=== PATIENT | female | born 1945 | race Caucasian/White ===

== ENCOUNTER 2018-03-21 09:09 | Day surgery (SDC) | payer MEDICARE ==
[~2018-03-21 09:09] MED LIST: Acetaminophen TAB* 325 MG PO PRN; Buffered Lidocaine 1% SYRIN* 1 ML/SYRINGE INTRADERM ONE; Cyclopentolate 1% OPTH.SOL* 2 ML BTL ONE; Ketorolac 0.5% OPHTH (NF) 0.5 % 5 ML BTL ONE; Lidocaine 1%* 5 ML VIAL ONE; Neomycin/Polymy/Dex OPHTH.OIN* 3.5 GM ONE; Phenylephrine 2.5% OPTH.SOL* 2 ML BTL ONE; Tetracaine 0.5% OPTH.SOL 4 ML* 1 DROP BTL ONE; Tropicamide 1% OPTH.SOL* BTL ONE; Trypan Blue 0.06% SOL* 0.5 ML BTL ONE
[2018-03-21] MEDS ORDERED: fentaNYL* 50 MCG/ML 2 ML VIAL (100 MCG VIAL) ONE (10:13)
[2018-03-21] MEDS ORDERED: Midazolam* 1 MG/ML 2 ML VIAL (2 MG) ONE (10:13)
[2018-03-21 11:37] VITALS: BP 125/58
[2018-03-21] MEDS ORDERED: Phenylephr/Ketorolac 1%/0.3% OPH DROP BTL ONE (13:22)
--- NOTE | 2018-03-21 20:05 | OP ---
DATE OF OPERATION: 03/21/18 [facility] DATE OF : 41 SURGEON: Chin Brody MD HELIX COIL WINDER: None. ANESTHESIA: Topical with intravenous sedation. PRE-OP DIAGNOSIS: Dense white cataract, right eye. POST-OP DIAGNOSIS: Dense white cataract, right eye. OPERATIVE PROCEDURE: Phacoemulsification and cataract extraction with posterior chamber intraocular lens implant, right eye. COMPLICATIONS: None. BLOOD LOSS: None. DESCRIPTION OF PROCEDURE: The patient was brought to the operating room and received intravenous sedation as well as a drop of tetracaine to her right eye. The patient was prepped and draped in the usual sterile fashion for ophthalmic surgery and attention was directed to the right eye where a speculum was placed. It was noted that her pupil was not well dilated and she had a dense white lens. A paracentesis was created at the 11 o'clock position and 0.1 cc of 1% preservative-free lidocaine was injected into the anterior chamber followed by room air. This was followed by Vision-Blue dye and then by DisCoVisc. The eye was digitally stabilized while a 2.75-mm keratome was used to create a triplanar clear corneal incision at the 9 o'clock position. A continuous curvilinear capsulorrhexis was created with a cystotome and Utrata forceps. BSS on a cannula was used to hydrodissect the lens from the capsule. The phacoemulsification was performed in a thglts-shj-ahfudio technique to create 4 fragments, which were removed. Phaco power had to be increased about 10% to achieve this safely without pushing too hard on the lens capsular complex. Minimal residual cortical material was removed with irrigation and aspiration. Omidria had been placed in the irrigating solution to facilitate the surgery. The eye was inflated with Provisc and the surface of the eye was lubricated. Eye pressure was checked with a tonometer and then ORA was applied to confirm proper lens choice. An AU00T0 21.5 diopter lens was inserted into the capsular bag. Viscoelastic was then removed from the eye using irrigation and aspiration. BSS on the cannula was used to hydrate the corneal stoma and seal the wound. At the end of the case, the pupil was round. The lens was centered and stable. The eye pressure appeared normal and the wound was watertight. Topical Maxitrol ointment was placed on the surface of the eye. The eye was closed, patched and shielded and the patient was sent to recovery room in stable condition with postop instructions and followup appointment given. [id number]/[facility] #: [id number] HERMELINDO
== END 2018-03-21 12:02 | disposition home or self-care (01) ==
LOC: OREAST 09:09
PROVIDERS: ATTEND Ophthalmology
DX: H25.041 Posterior subcapsular polar age-related cataract, right eye (principal); E78.00 Pure hypercholesterolemia, unspecified; I10 Essential (primary) hypertension; E78.5 Hyperlipidemia, unspecified
CPT/HCPCS: A9270-GY; C9447; J2250; J3010; V2632

== ENCOUNTER 2021-12-26 13:18 | Inpatient (IN) ==
[2021-12-26 14:03] LABS: Hematocrit 39 % (35-47); Hemoglobin 12.9 g/dL (12.0-16.0); Mean Corpuscular HGB Conc 33 g/dL (31-36); Mean Corpuscular Hemoglobin 31 pg (27-31); Mean Corpuscular Volume 93 fL (80-97); Platelet Count 250 10^3/uL (150-450); Red Blood Count 4.17 10^6 /uL (3.70-4.87); Red Cell Distribution Width 14 % (10-15); White Blood Count 17.1 10^3/uL (3.5-10.8)
[2021-12-26] MEDS ORDERED: cefTRIAXone 1 gm/50 mL D5W 1 GM/50 ML BAG IV ONE (14:08)
[2021-12-26 14:42] LABS: Albumin/Globulin Ratio 0.7 (1-3); C Reactive Protein 349.09 mg/L (<8.01); Calcium 8.6 mg/dL (8.6-10.3); Globulin 4.6 g/dL (2-4); Potassium 3.8 mmol/L (3.5-5.0); Total Bilirubin 2.1 mg/dL (0.2-1.0); Total Protein 7.6 g/dL (6.4-8.9); eGFR CKD-EPI 48.8 (>60)
[2021-12-26] MEDS ORDERED: Iodixanol (CONTRAST) 320 MG/ML 100 ML SDV IV ONE (14:45)
[2021-12-26 14:51] LABS: ABS Lymphocytes 0.5 10^3/ul (1.0-4.8); ABS Monocytes 0.4 10^3/ul (0-0.8); ABS Neutrophils 16.1 10^3/ul (1.5-7.7); Eosinophil % 0.1 %; Lymphocyte % 3.1 %
[2021-12-26] MEDS ORDERED: NS 0.9% 1000 ml BAG 1,000 ML IV ONE (15:06)
[2021-12-26 15:11] LABS: Venous Bicarbonate HCO3 25.5 mmol/L (24-28)
[2021-12-26 15:35] LABS: High Sensitivity Troponin 1 Hr 30 pg/mL (<15)
[2021-12-26 17:39] LABS: HDL Cholesterol 21.5 mg/dL
[2021-12-26 17:54] LABS: TSH Ultra Thyroid Stim Horm 8.43 mcIU/mL (0.34-5.60)
[2021-12-26] MEDS ORDERED: Azithromycin 500 mg/250 ml NS 500 MG/250 ML BAG IVPB SCH (18:00)
[2021-12-26] MEDS ORDERED: Cyanocobalamin INJ 1,000 MCG/ML VIAL 1 ML VIAL IM SCH (19:00)
[2021-12-26 19:17] LABS: Phosphorus 2.6 mg/dL (2.5-5.0)
[2021-12-26] MEDS: Lactated Ringers 1000 ml BAG 1,000 ML IV SCH (20:08)
[2021-12-26] MEDS: Azithromycin 500 mg/250 ml NS 500 MG/250 ML BAG IVPB SCH (21:07)
[2021-12-27 00:09] LABS: Calcium 7.9 mg/dL (8.6-10.3); Potassium 3.5 mmol/L (3.5-5.0); eGFR CKD-EPI 88.5 (>60)
[2021-12-27 00:32] LABS: Urine Appearance Cloudy; Urine Bilirubin Negative (Negative); Urine Blood 3+ (Negative); Urine Color Yellow; Urine Glucose Negative (Negative); Urine Ketones Trace (Negative); Urine Nitrite Positive (Negative); Urine Protein 2+(100 mg/dL) (Negative); Urine Specific Gravity 1.038 (1.002-1.030); Urine Urobilinogen Positive (Negative)
[2021-12-27 00:35] LABS: Urine Bacteria 1+ (Absent); Urine Red Blood Cell Trace(0-2/hpf) (Absent); Urine Squamous Epithelial Cell Present (Absent); Urine White Blood Cell 2+(11-20/hpf) (Absent)
[2021-12-27 01:04] LABS: Urine Osmo 704 mOsm/kg (150-1150)
[2021-12-27 05:13] LABS: ABS Lymphocytes 0.4 10^3/ul (1.0-4.8); ABS Monocytes 0.4 10^3/ul (0-0.8); ABS Neutrophils 12.1 10^3/ul (1.5-7.7); Eosinophil % 0.1 %; Hematocrit 33 % (35-47); Hemoglobin 11.3 g/dL (12.0-16.0); Lymphocyte % 3.4 %; Mean Corpuscular HGB Conc 34 g/dL (31-36); Mean Corpuscular Hemoglobin 32 pg (27-31); Mean Corpuscular Volume 93 fL (80-97); Mean Platelet Volume 7.6 fL (7.4-10.4); Platelet Count 205 10^3/uL (150-450); Red Cell Distribution Width 13 % (10-15); White Blood Count 12.9 10^3/uL (3.5-10.8)
[2021-12-27 05:48] LABS: Calcium 7.5 mg/dL (8.6-10.3); Phosphorus 2.5 mg/dL (2.5-5.0); Potassium 3.5 mmol/L (3.5-5.0); eGFR CKD-EPI 92.2 (>60)
[2021-12-27 07:30] LABS: Albumin 2.1 g/dL (3.2-5.2); Albumin/Globulin Ratio 0.6 (1-3); Direct Bilirubin 0.5 mg/dL (0.03-0.18); Globulin 3.3 g/dL (2-4); Indirect Bilirubin 0.7 mg/dL (0.3-1.0); Total Bilirubin 1.2 mg/dL (0.2-1.0); Total Protein 5.4 g/dL (6.4-8.9)
[2021-12-27] MEDS: Lactated Ringers 1000 ml BAG 1,000 ML IV SCH ×2 (08:34→23:13)
[2021-12-27] MEDS ORDERED: Potassium Chlor 20 meq TAB.ER PO ONE (08:37)
[2021-12-27] MEDS: Cyanocobalamin INJ 1,000 MCG/ML VIAL 1 ML VIAL IM SCH (09:03)
[2021-12-27] MEDS: Aspirin EC 81 mg TAB.EC (enteric coated) PO SCH (09:03)
[2021-12-27] MEDS: cefTRIAXone 1 gm/50 mL D5W 1 GM/50 ML BAG IV SCH (16:55)
[2021-12-27] MEDS: Azithromycin 500 mg/250 ml NS 500 MG/250 ML BAG IVPB SCH (19:35)
[2021-12-27] MEDS ORDERED: Haloperidol 5 mg/ml SDV IV/IM 5 MG/ML AMP IV SLOW PU ONE (22:08)
[2021-12-27] MEDS ORDERED: Lactated Ringers 1000 ml BAG 500 ML IV ONE (23:10)
[2021-12-28] MEDS: Lactated Ringers 1000 ml BAG 1,000 ML IV SCH (06:00)
[2021-12-28 06:04] LABS: Hematocrit 35 % (35-47); Hemoglobin 11.6 g/dL (12.0-16.0); Mean Corpuscular HGB Conc 33 g/dL (31-36); Mean Corpuscular Hemoglobin 31 pg (27-31); Mean Corpuscular Volume 94 fL (80-97); Mean Platelet Volume 7.5 fL (7.4-10.4); Platelet Count 205 10^3/uL (150-450); Red Cell Distribution Width 14 % (10-15); White Blood Count 10.1 10^3/uL (3.5-10.8)
[2021-12-28 06:20] LABS: ALT 61 U/L (7-52); Albumin 2.1 g/dL (3.2-5.2); Albumin/Globulin Ratio 0.6 (1-3); Alkaline Phosphatase 96 U/L (35-149); Blood Urea Nitrogen 27 mg/dL (6-24); CO2 Carbon Dioxide 25 mmol/L (22-32); Calcium 7.6 mg/dL (8.6-10.3); Chloride 101 mmol/L (101-111); Globulin 3.3 g/dL (2-4); Glucose 89 mg/dL (70-100); Magnesium 1.9 mg/dL (1.9-2.7); Sodium 128 mmol/L (135-145); Total Protein 5.4 g/dL (6.4-8.9); eGFR CKD-EPI 94.6 (>60)
[2021-12-28 06:28] LABS: Anion Gap 2 mmol/L (2-11)
[2021-12-28 07:43] LABS: Potassium Redraw 3.9 mmol/L (3.5-5.0)
[2021-12-28 08:27] LABS: ABS Lymphocytes 0.7 10^3/ul (1.0-4.8); ABS Monocytes 0.8 10^3/ul (0-0.8); ABS Neutrophils 8.6 10^3/ul (1.5-7.7); Eosinophil % 0.1 %; Lymphocyte % 6.9 %
[2021-12-28] MEDS: Aspirin EC 81 mg TAB.EC (enteric coated) PO SCH (11:07)
[2021-12-28] MEDS: Cyanocobalamin INJ 1,000 MCG/ML VIAL 1 ML VIAL IM SCH (14:20)
[2021-12-28] MEDS: Enoxaparin 40 MG/0.4 ML SYR SUBCUT SCH (14:21)
[2021-12-28] MEDS: cefTRIAXone 1 gm/50 mL D5W 1 GM/50 ML BAG IV SCH (15:58)
[2021-12-28] MEDS: Acetaminophen IV 1 GM/100ML 1,000 MG/100 ML BAG IV PRN (18:03)
[2021-12-28] MEDS: Azithromycin 500 mg/250 ml NS 500 MG/250 ML BAG IVPB SCH (19:44)
[2021-12-29 04:47] LABS: Hematocrit 39 % (35-47); Hemoglobin 12.8 g/dL (12.0-16.0); Mean Corpuscular HGB Conc 33 g/dL (31-36); Mean Corpuscular Hemoglobin 32 pg (27-31); Mean Corpuscular Volume 97 fL (80-97); Mean Platelet Volume 7.4 fL (7.4-10.4); Platelet Count 230 10^3/uL (150-450); Red Blood Count 4.05 10^6 /uL (3.70-4.87); Red Cell Distribution Width 14 % (10-15); White Blood Count 8.9 10^3/uL (3.5-10.8)
[2021-12-29 04:58] LABS: Potassium 4.2 mmol/L (3.5-5.0)
[2021-12-29 05:09] LABS: ABS Eosinophils 0.1 10^3/ul (0-0.6); ABS Lymphocytes 0.9 10^3/ul (1.0-4.8); ABS Monocytes 1.2 10^3/ul (0-0.8); ABS Neutrophils 6.7 10^3/ul (1.5-7.7); Calcium 7.6 mg/dL (8.6-10.3); Eosinophil % 0.7 %; Lymphocyte % 10.4 %; Magnesium 1.9 mg/dL (1.9-2.7)
[2021-12-29 05:13] LABS: eGFR CKD-EPI 96.4 (>60)
[2021-12-29] MEDS: Aspirin EC 81 mg TAB.EC (enteric coated) PO SCH (09:01)
[2021-12-29] MEDS: Cyanocobalamin INJ 1,000 MCG/ML VIAL 1 ML VIAL IM SCH (09:02)
[2021-12-29] MEDS: Lidocaine PATCH 5% PATCH TRANSDERM SCH (09:03)
[2021-12-29] MEDS: Enoxaparin 40 MG/0.4 ML SYR SUBCUT SCH (12:57)
[2021-12-29] MEDS: cefTRIAXone 1 gm/50 mL D5W 1 GM/50 ML BAG IV SCH (17:31)
[2021-12-30 07:03] LABS: Hematocrit 35 % (35-47); Hemoglobin 11.8 g/dL (12.0-16.0); Mean Corpuscular HGB Conc 34 g/dL (31-36); Mean Corpuscular Hemoglobin 32 pg (27-31); Mean Corpuscular Volume 93 fL (80-97); Mean Platelet Volume 7.6 fL (7.4-10.4); Platelet Count 277 10^3/uL (150-450); Red Blood Count 3.72 10^6 /uL (3.70-4.87); Red Cell Distribution Width 14 % (10-15); White Blood Count 7.8 10^3/uL (3.5-10.8)
[2021-12-30 07:27] LABS: Calcium 7.7 mg/dL (8.6-10.3); Potassium 3.9 mmol/L (3.5-5.0); eGFR CKD-EPI 95.5 (>60)
[2021-12-30] MEDS: Lidocaine PATCH 5% PATCH TRANSDERM SCH (08:37)
[2021-12-30] MEDS: Aspirin EC 81 mg TAB.EC (enteric coated) PO SCH (08:37)
[2021-12-30] MEDS: Cyanocobalamin INJ 1,000 MCG/ML VIAL 1 ML VIAL IM SCH (08:37)
[2021-12-30 09:14] LABS: ABS Eosinophils 0.1 10^3/ul (0-0.6); ABS Lymphocytes 1.2 10^3/ul (1.0-4.8); ABS Monocytes 1.3 10^3/ul (0-0.8); ABS Neutrophils 5.3 10^3/ul (1.5-7.7); Eosinophil % 0.6 %; Lymphocyte % 15.1 %; RBC Morphology Normal (Normal)
[2021-12-30] MEDS: Enoxaparin 40 MG/0.4 ML SYR SUBCUT SCH (13:42)
[2021-12-30] MEDS: cefTRIAXone 1 gm/50 mL D5W 1 GM/50 ML BAG IV SCH (15:59)
[2021-12-31 09:14] LABS: Hematocrit 37 % (35-47); Hemoglobin 12.4 g/dL (12.0-16.0); Mean Corpuscular HGB Conc 34 g/dL (31-36); Mean Corpuscular Hemoglobin 32 pg (27-31); Mean Corpuscular Volume 93 fL (80-97); Mean Platelet Volume 7.6 fL (7.4-10.4); Platelet Count 333 10^3/uL (150-450); Red Blood Count 3.92 10^6 /uL (3.70-4.87); Red Cell Distribution Width 13 % (10-15); White Blood Count 9.3 10^3/uL (3.5-10.8)
[2021-12-31] MEDS: Cyanocobalamin INJ 1,000 MCG/ML VIAL 1 ML VIAL IM SCH (09:23)
[2021-12-31] MEDS: Aspirin EC 81 mg TAB.EC (enteric coated) PO SCH (09:23)
[2021-12-31] MEDS: Lidocaine PATCH 5% PATCH TRANSDERM SCH (09:24)
[2021-12-31 09:38] LABS: Calcium 7.8 mg/dL (8.6-10.3); Potassium 3.9 mmol/L (3.5-5.0); eGFR CKD-EPI 98.4 (>60)
[2021-12-31 10:25] LABS: ABS Eosinophils 0.1 10^3/ul (0-0.6); ABS Lymphocytes 1.5 10^3/ul (1.0-4.8); ABS Monocytes 1.4 10^3/ul (0-0.8); ABS Neutrophils 6.3 10^3/ul (1.5-7.7); Eosinophil % 1.1 %; Lymphocyte % 16.2 %
[2021-12-31] MEDS ORDERED: Naloxone 0.4 mg VIAL 0.4 mg/ml 1 ml VIAL ONE (12:26)
[2021-12-31] MEDS ORDERED: Flumazenil 0.5 mg/5 ml 0.1 MG/ML 5 ml VIAL ONE (12:26)
[2021-12-31] MEDS ORDERED: fentaNYL 100 mcg/2 ml 50 MCG/ML VIAL ONE (12:26)
[2021-12-31] MEDS ORDERED: Midazolam 5 mg/5 ml VIAL 1 mg/ml 5 ml VIAL (5 mg) ONE (12:26)
[2021-12-31] MEDS: Enoxaparin 40 MG/0.4 ML SYR SUBCUT SCH (14:23)
[2021-12-31] MEDS: cefTRIAXone 1 gm/50 mL D5W 1 GM/50 ML BAG IV SCH (16:24)
[2022-01-01 06:16] LABS: Hematocrit 39 % (35-47); Hemoglobin 12.9 g/dL (12.0-16.0); Mean Corpuscular HGB Conc 34 g/dL (31-36); Mean Corpuscular Hemoglobin 31 pg (27-31); Mean Corpuscular Volume 94 fL (80-97); Platelet Count 389 10^3/uL (150-450); Red Blood Count 4.12 10^6 /uL (3.70-4.87); Red Cell Distribution Width 14 % (10-15); White Blood Count 8.6 10^3/uL (3.5-10.8)
[2022-01-01 07:14] LABS: Calcium 8.1 mg/dL (8.6-10.3); Potassium 4.2 mmol/L (3.5-5.0); eGFR CKD-EPI 96.9 (>60)
[2022-01-01 07:31] LABS: ABS Eosinophils 0.1 10^3/ul (0-0.6); ABS Lymphocytes 1.3 10^3/ul (1.0-4.8); ABS Monocytes 0.9 10^3/ul (0-0.8); ABS Neutrophils 6.3 10^3/ul (1.5-7.7); Eosinophil % 1.3 %
[2022-01-01] MEDS: Aspirin EC 81 mg TAB.EC (enteric coated) PO SCH (08:56)
[2022-01-01] MEDS: Lidocaine PATCH 5% PATCH TRANSDERM SCH (08:56)
[2022-01-01] MEDS: Cyanocobalamin INJ 1,000 MCG/ML VIAL 1 ML VIAL IM SCH (08:56)
[2022-01-01] MEDS ORDERED: cefTRIAXone 1 gm/50 mL D5W 1 GM/50 ML BAG IV SCH ×2 (11:30→12:00)
[2022-01-01] MEDS ORDERED: Nystatin SUSPENSION 100,000 UNITS/ML UDC PO ONE (11:52)
[2022-01-01] MEDS: D5W 1/2 NS 1000 ml BAG 1,000 ML IV SCH (12:04)
[2022-01-01] MEDS: Enoxaparin 40 MG/0.4 ML SYR SUBCUT SCH (12:04)
[2022-01-01] MEDS: Pantoprazole VIAL 40 MG VIAL IV SCH (12:04)
[2022-01-01] MEDS ORDERED: Midazolam 5 mg/5 ml VIAL 1 mg/ml 5 ml VIAL (5 mg) ONE (17:00)
[2022-01-01] MEDS ORDERED: fentaNYL 100 mcg/2 ml 50 MCG/ML VIAL ONE (17:00)
[2022-01-01] MEDS: Acetaminophen IV 1 GM/100ML 1,000 MG/100 ML BAG IV PRN (21:19)
[2022-01-02] MEDS: D5W 1/2 NS 1000 ml BAG 1,000 ML IV SCH ×2 (03:12→17:27)
[2022-01-02 08:13] LABS: ABS Eosinophils 0.2 10^3/ul (0-0.6); ABS Lymphocytes 1.1 10^3/ul (1.0-4.8); ABS Monocytes 0.8 10^3/ul (0-0.8); ABS Neutrophils 4.3 10^3/ul (1.5-7.7); Eosinophil % 3.9 %; Hematocrit 36 % (35-47); Hemoglobin 12.1 g/dL (12.0-16.0); Lymphocyte % 16.5 %; Mean Corpuscular HGB Conc 34 g/dL (31-36); Mean Corpuscular Hemoglobin 31 pg (27-31); Mean Corpuscular Volume 93 fL (80-97); Mean Platelet Volume 6.9 fL (7.4-10.4); Nucleated Red Blood Cells % 0.2; Platelet Count 350 10^3/uL (150-450); Red Blood Count 3.84 10^6 /uL (3.70-4.87); Red Cell Distribution Width 13 % (10-15); White Blood Count 6.4 10^3/uL (3.5-10.8)
[2022-01-02 08:41] LABS: Calcium 7.5 mg/dL (8.6-10.3); Potassium 3.8 mmol/L (3.5-5.0); eGFR CKD-EPI 99.4 (>60)
[2022-01-02] MEDS: Pantoprazole VIAL 40 MG VIAL IV SCH (09:54)
[2022-01-02] MEDS: Lidocaine PATCH 5% PATCH TRANSDERM SCH (09:54)
[2022-01-02] MEDS: Aspirin EC 81 mg TAB.EC (enteric coated) PO SCH (09:54)
[2022-01-02] MEDS: Cyanocobalamin INJ 1,000 MCG/ML VIAL 1 ML VIAL IM SCH (09:55)
[2022-01-02 11:35] LABS: Magnesium 1.7 mg/dL (1.9-2.7); Phosphorus 2.5 mg/dL (2.5-5.0)
[2022-01-02] MEDS: Enoxaparin 40 MG/0.4 ML SYR SUBCUT SCH (12:55)
[2022-01-02] MEDS ORDERED: POTASSIUM PHOSPHATE IVPB ONE (15:15)
[2022-01-02] MEDS ORDERED: NS IVPB ONE (15:15)
[2022-01-02] MEDS ORDERED: Magnesium Sulfate 2 gm BAG 2 GM/50 ML BAG IVPB ONE (15:16)
[2022-01-03] MEDS: D5W 1/2 NS 1000 ml BAG 1,000 ML IV SCH ×2 (06:24→22:34)
[2022-01-03 06:26] LABS: ABS Eosinophils 0.2 10^3/ul (0-0.6); ABS Lymphocytes 1.1 10^3/ul (1.0-4.8); ABS Neutrophils 3.6 10^3/ul (1.5-7.7); Eosinophil % 4.1 %; Hematocrit 35 % (35-47); Hemoglobin 11.7 g/dL (12.0-16.0); Lymphocyte % 18.3 %; Mean Corpuscular HGB Conc 34 g/dL (31-36); Mean Corpuscular Hemoglobin 31 pg (27-31); Mean Corpuscular Volume 93 fL (80-97); Mean Platelet Volume 7.2 fL (7.4-10.4); Nucleated Red Blood Cells % 0.1; Platelet Count 352 10^3/uL (150-450); Red Blood Count 3.71 10^6 /uL (3.70-4.87); Red Cell Distribution Width 13 % (10-15)
[2022-01-03 06:44] LABS: Calcium 7.4 mg/dL (8.6-10.3); Potassium 3.8 mmol/L (3.5-5.0); eGFR CKD-EPI 101.2 (>60)
[2022-01-03] MEDS: Pantoprazole VIAL 40 MG VIAL IV SCH (09:20)
[2022-01-03] MEDS: Aspirin EC 81 mg TAB.EC (enteric coated) PO SCH ×2 (09:20→09:23)
[2022-01-03] MEDS: Lidocaine PATCH 5% PATCH TRANSDERM SCH (09:20)
[2022-01-03] MEDS: Enoxaparin 40 MG/0.4 ML SYR SUBCUT SCH (12:11)
[2022-01-03] MEDS: ACYCLOVIR IVPB SCH (19:33)
[2022-01-03] MEDS: NS 0.9% IVPB SCH (19:33)
[2022-01-04] MEDS: NS 0.9% IVPB SCH (02:37)
[2022-01-04] MEDS: ACYCLOVIR IVPB SCH (02:37)
[2022-01-04 07:06] LABS: ABS Eosinophils 0.2 10^3/ul (0-0.6); ABS Lymphocytes 1.2 10^3/ul (1.0-4.8); ABS Monocytes 0.9 10^3/ul (0-0.8); ABS Neutrophils 2.4 10^3/ul (1.5-7.7); Eosinophil % 4.8 %; Hematocrit 35 % (35-47); Hemoglobin 11.6 g/dL (12.0-16.0); Lymphocyte % 24.6 %; Mean Corpuscular HGB Conc 33 g/dL (31-36); Mean Corpuscular Hemoglobin 31 pg (27-31); Mean Corpuscular Volume 94 fL (80-97); Mean Platelet Volume 7.4 fL (7.4-10.4); Platelet Count 375 10^3/uL (150-450); Red Blood Count 3.75 10^6 /uL (3.70-4.87); Red Cell Distribution Width 14 % (10-15); White Blood Count 4.7 10^3/uL (3.5-10.8)
[2022-01-04] MEDS: Aspirin EC 81 mg TAB.EC (enteric coated) PO SCH (07:22)
[2022-01-04 07:26] LABS: Calcium 7.6 mg/dL (8.6-10.3); Potassium 3.9 mmol/L (3.5-5.0); eGFR CKD-EPI 98.3 (>60)
[2022-01-04] MEDS: Lidocaine PATCH 5% PATCH TRANSDERM SCH (08:27)
[2022-01-04] MEDS: Pantoprazole VIAL 40 MG VIAL IV SCH (08:27)
[2022-01-04] MEDS: Nystatin SUSPENSION 100,000 UNITS/ML UDC PO SCH ×4 (11:52→20:37)
[2022-01-04] MEDS: Enoxaparin 40 MG/0.4 ML SYR SUBCUT SCH (11:52)
[2022-01-04] MEDS ORDERED: Nystatin SUSPENSION 100,000 UNITS/ML UDC PO SCH (13:00)
[2022-01-04] MEDS: D5W 1/2 NS 1000 ml BAG 1,000 ML IV SCH (13:14)
[2022-01-05] MEDS: D5W 1/2 NS 1000 ml BAG 1,000 ML IV SCH (05:39)
[2022-01-05 07:10] LABS: ABS Basophils 0.1 10^3/ul (0-0.2); ABS Eosinophils 0.3 10^3/ul (0-0.6); ABS Lymphocytes 1.3 10^3/ul (1.0-4.8); ABS Neutrophils 2.7 10^3/ul (1.5-7.7); Eosinophil % 4.9 %; Hematocrit 36 % (35-47); Hemoglobin 12.1 g/dL (12.0-16.0); Lymphocyte % 24.1 %; Mean Corpuscular HGB Conc 34 g/dL (31-36); Mean Corpuscular Hemoglobin 32 pg (27-31); Mean Corpuscular Volume 93 fL (80-97); Mean Platelet Volume 7.6 fL (7.4-10.4); Nucleated Red Blood Cells % 0.1; Platelet Count 395 10^3/uL (150-450); Red Blood Count 3.82 10^6 /uL (3.70-4.87); Red Cell Distribution Width 14 % (10-15); White Blood Count 5.3 10^3/uL (3.5-10.8)
[2022-01-05 07:16] LABS: Potassium 3.6 mmol/L (3.5-5.0); eGFR CKD-EPI 101.9 (>60)
[2022-01-05] MEDS: Aspirin EC 81 mg TAB.EC (enteric coated) PO SCH (08:59)
[2022-01-05] MEDS: Pantoprazole VIAL 40 MG VIAL IV SCH (08:59)
[2022-01-05] MEDS: Nystatin SUSPENSION 100,000 UNITS/ML UDC PO SCH ×4 (08:59→20:54)
[2022-01-05] MEDS: Lidocaine PATCH 5% PATCH TRANSDERM SCH (09:00)
[2022-01-05] MEDS: Enoxaparin 40 MG/0.4 ML SYR SUBCUT SCH (11:40)
[2022-01-05] MEDS ORDERED: Anidulafungin 100 MG in NS 0.9% 100 ml BAG 100 ML IVPB ONE (16:01)
[2022-01-05 16:16] LABS: Rapid COVID-19 Molecular Undetected (Undetected)
[2022-01-06] MEDS ORDERED: ANIDULAFUNGIN IVPB ONE (06:00)
[2022-01-06] MEDS ORDERED: NS 0.9% IVPB ONE (06:00)
[2022-01-06 06:19] LABS: ABS Basophils 0.1 10^3/ul (0-0.2); ABS Eosinophils 0.2 10^3/ul (0-0.6); ABS Lymphocytes 1.4 10^3/ul (1.0-4.8); ABS Monocytes 0.9 10^3/ul (0-0.8); ABS Neutrophils 2.1 10^3/ul (1.5-7.7); Hematocrit 34 % (35-47); Hemoglobin 11.6 g/dL (12.0-16.0); Lymphocyte % 30.1 %; Mean Corpuscular HGB Conc 34 g/dL (31-36); Mean Corpuscular Hemoglobin 31 pg (27-31); Mean Corpuscular Volume 93 fL (80-97); Mean Platelet Volume 7.4 fL (7.4-10.4); Platelet Count 397 10^3/uL (150-450); Red Cell Distribution Width 14 % (10-15); White Blood Count 4.8 10^3/uL (3.5-10.8)
[2022-01-06 06:42] LABS: Potassium 3.6 mmol/L (3.5-5.0); eGFR CKD-EPI 99.4 (>60)
[2022-01-06] MEDS: Aspirin EC 81 mg TAB.EC (enteric coated) PO SCH (08:59)
[2022-01-06] MEDS: Nystatin SUSPENSION 100,000 UNITS/ML UDC PO SCH ×2 (08:59→14:00)
[2022-01-06] MEDS: Lidocaine PATCH 5% PATCH TRANSDERM SCH (08:59)
[2022-01-06 11:20] VITALS: BP 130/84
[2022-01-06] MEDS: Enoxaparin 40 MG/0.4 ML SYR SUBCUT SCH (14:01)
== END 2022-01-06 15:30 | DRG 871 ==
LOC: ED 13:18 → SUATTDRO 16:55 → EDHOLD 16:55 → ICU 19:22 → MED 12-29 15:45
PROVIDERS: ADMIT Internal Medicine; ATTEND Hospitalist